=== PATIENT | male | born 1955 | race Caucasian/White ===

== ENCOUNTER 2019-05-02 07:46 | Inpatient (IN) ==
--- NOTE | 2019-05-02 08:01 | PROVIDER DOCUMENTATION ---
HPI-Neurological Disorder - General Chief Complaint: Altered Mental Status Stated Complaint: stroke sxs Source: patient (patient at home not responding to calls family? called in well check found floor in house aphasia weakness in right arm flaccid right leg paresis.he has no cp or headache no seizure disorder smoker on any meds ? no hx cva.) Allergies/Adverse Reactions: Patient Allergies Allergy/AdvReac Type Severity Reaction Status Date / Time No Known Allergies Allergy Verified 05/02/19 07:51 Home Medications: Home Medication List Medication Instructions Recorded Confirmed Last Taken Type Unobtainable [Home Meds 05/02/19 05/02/19 Unknown History Unobtainable] Review of Systems - Adult - REVIEW OF SYSTEMS - ADULT Constitutional: reports: no symptoms reported Eyes: reports: no symptoms reported Ears, Nose, Mouth & Throat: reports: no symptoms reported Cardiovascular: reports: no symptoms reported Respiratory: reports: cough Gastrointestinal: reports: no symptoms reported Genitourinary: reports: no symptoms reported Musculoskeletal: reports: no symptoms reported Integumentary: reports: no symptoms reported Neurological: reports: see HPI, other (aphasia right hemiparesis) Psychiatric: reports: alcohol/drug dependence Endocrine: reports: no symptoms reported Hematologic/Lymphatic: reports: no symptoms reported Allergic/Immunologic: reports: no symptoms reported Past History - Adult - PAST MEDICAL HISTORY-ADULT Review of Records: reports: Nursing Assessment Review, Medications Reviewed, Social history reviewed & non-contributory. Major Childhood Illnesses: reports: denies history Cardiovascular: reports: HTN Respiratory: reports: COPD, other (smoker) Gastrointestinal: reports: denies history Genitourinary: reports: denies history Musculoskeletal: reports: denies history Neurological: reports: denies history Psychiatric: reports: denies history Endocrine/Immune: reports: denies history Progress - PLAN OF CARE/RESULTS Progress/Plan/Lab Results: Vital Signs - 8 hr 05/02/19 07:40 Temperature 98 F Pulse Rate 114 H Respiratory Rate 20 Blood Pressure 164/89 O2 Sat by Pulse Oximetry 98 Orders Category Date Time Status CT HEAD W/O CONTRAST [CT] Stat Exams 05/02/19 07:42 Ordered
--- NOTE | 2019-05-02 08:22 | Diag Imaging Result Doc PS360 ---
EXAM: CHEST-1 VIEW - 05/02/2019 HISTORY: ams TECHNIQUE: One view chest COMPARISON: 02/16/2015 FINDINGS: Heart size is normal. There is some tortuosity of the thoracic aorta. The lungs appear clear. There is no pleural effusion or pneumothorax identified. IMPRESSION: No evidence of acute disease. Electronically signed by Elmer Wilhelm 05/02/2019 8:19 AM
[2019-05-02 08:31] LABS: BASO# 0.03 X1000 (0.0-0.2); BASO% 0.4 % (0.0-0.8); EOS# 0.44 X1000 (0.0-0.7); EOS% 6.2 % (0.0-10.0); HEMATOCRIT 43.2 % (42.0-52.0); HEMOGLOBIN 13.6 g/dL (14.0-18.0); IMM GRAN# 0.01 X1000 (0.0-0.04); IMM GRAN% 0.1 % (0.0-0.5); LYMPH# 1.06 X1000 (1.2-3.4); MCHC 31.5 g/dL (33-37); MCV 101.6 FL (81-99); MONO# 0.74 X1000 (0.11-0.59); MONO% 10.5 % (1.7-9.3); MPV 11.3 FL (7.4-10.4); NEUT# 4.78 X1000 (1.4-6.5); NEUT% 67.8 % (42.2-75.2); PLT 312 X1000 (130-400); RBC 4.25 XMIL (4.7-6.1); WBC 7.06 X1000 (4.8-10.8)
--- NOTE | 2019-05-02 08:33 | Diag Imaging Result Doc PS360 ---
EXAM: CT HEAD W/O CONTRAST - 05/02/2019 HISTORY: ams TECHNIQUE: CT head without contrast COMPARISON: None. FINDINGS: There is approximately 7.5 x 5.5 cm in axial dimensions low-density area at the posterior frontal, anterior temporal, and anterior parietal region on the left. This is compatible with acute infarct. There is associated mild mass effect on the ventricular system. There is no substantial midline shift identified. There is no evidence of intracranial hemorrhage. IMPRESSION: Approximately 7.5 x 5.5 cm acute infarct at left frontotemporoparietal region. Associated mild mass effect on the left lateral ventricle. No evidence of hemorrhage. This report was discussed with Dr. Gerardo on 05/02/2019 at 8:30 AM and was readback. This exam was performed using automated exposure control, adjustment of mA or kV according to patient size, and/or use of iterative reconstruction technique. Electronically signed by Elmer Wilhelm 05/02/2019 8:31 AM
[2019-05-02 08:57] LABS: INR 1.05; PROTIME 14.2 Seconds (11.0-16.0)
[2019-05-02 08:58] LABS: PTT 32.1 Seconds (22.3-41.8)
[2019-05-02 09:05] LABS: ALBUMIN 4.3 g/dL (3.5-5.0); CALCIUM 10.3 mg/dL (8.8-10.2); CREATININE 1.7 mg/dL (0.7-1.2); POTASSIUM 4.4 mmol/L (3.5-5.1); TOTAL BILIRUBIN 0.4 mg/dL (0.20-1.00); TOTAL PROTEIN 7.8 g/dL (6.3-8.3)
[2019-05-02 09:11] LABS: BE -5.7 mmoll (-3.0-3.0); BLOOD TYPE ARTERIAL; HCO3-(ACT) 20.4 mmoll (20.0-26.0); METHB 1.1 % (0.0-1.5); O2(CT) 17.5 mL/dL (15.0-23.0); O2HB 93.3 % (95.0-99.0); PCO2(98.6) 31 mmHg (35-45); PO2(98.6) 72 mmHg (60-100); SAMPLE BLOOD; SAO2 96.5 % (95.0-100.0); THB 13.3 g/dL (11.5-17.4); pH(98.6) 7.38 (7.35-7.45)
[2019-05-02 09:16] LABS: ALLEN TEST YES; MODALITY ROOM AIR
[2019-05-02 09:26] LABS: CK-MB 4.09 ng/mL (0.0-5.0)
[2019-05-02] MEDS ORDERED: NS 1,000 ML IV ONE (09:29)
[2019-05-02] MEDS ORDERED: CALMOSEPTINE OINTMENT TOP ONE (11:32)
--- NOTE | 2019-05-02 13:40 | Extremity Venous Study ---
EXAM: Carotid Ultrasound - 05/02/2019 HISTORY: CVA TECHNIQUE: Carotid flow studies COMPARISON: None. FINDINGS: There is thrombus in the common carotid and carotid bulb on the left with trickle blood flow. There is thrombus in the left internal carotid with no flow signal, compatible with occlusion of the internal carotid. There is atherosclerotic plaquing at the carotid bulb and internal carotid origin on the right. Maximum systolic velocity in the right internal carotid is 76 cm/s, maximum diastolic velocity is 28 cm/s. The right internal to common carotid systolic velocity ratio is 0.73. The flow velocities and ratio are consistent with 0-39% stenosis at the right internal carotid. The left vertebral demonstrates antegrade flow. The right vertebral demonstrates retrograde flow. IMPRESSION: Thrombus with trickle blood flow in the left common carotid and left carotid bulb. Thrombus with complete occlusion of the left internal carotid. Atherosclerotic plaquing at the carotid bulb and internal carotid origin on the right. 0-39% stenosis at right internal carotid. Antegrade flow in left vertebral. Retrograde flow in right vertebral. This report was discussed with Lucila Henriquez on 05/02/2019 at 1:38 PM and was readback. Electronically signed by Elmer Wilhelm 05/02/2019 1:38 PM
--- NOTE | 2019-05-02 14:36 | EKG Report ---
Test Performed on : 05/02/2019 07:57:14 AM Test Reason : ER Blood Pressure : / mmHG Vent. Rate : 119 BPM Atrial Rate : 119 BPM P-R Int : 144 ms QRS Dur : 074 ms QT Int : 306 ms P-R-T Axes : 068 064 248 degrees QTc Int : 430 ms Sinus tachycardia. with frequent premature ventricular complexes. and fusion complexes Possible Left atrial enlargement Septal infarct , age undetermined ST & T wave abnormality, consider inferolateral ischemia Abnormal ECG No previous ECGs available Unconfirmed Result
[2019-05-02] MEDS: NS 1,000 ML IV SCH ×2 (14:56→23:49)
[2019-05-02] MEDS: LOVENOX SUBQ SCH (14:56)
[2019-05-02 15:59] LABS: BILIRUBIN URINE NEGATIVE (NEGATIVE); BLOOD URINE NEGATIVE (NEGATIVE); CLARITY CLEAR (CLEAR); COLOR YELLOW; GLUCOSE URINE NEGATIVE (NEGATIVE); KETONE URINE 1+(Small) mg/dL (NEGATIVE); LEUKOCYTES URINE 2+ (NEGATIVE); NITRITE URINE NEGATIVE (NEGATIVE); PROTEIN URINE NEGATIVE (NEGATIVE); UROBILINOGEN URINE NORMAL
[2019-05-02 16:05] LABS: URINE BACTERIA 2+ /HFP; URINE CAST NONE SEEN /LPF; URINE CRYSTAL NONE SEEN /HPF; URINE EPITHELIAL CELLS >10 /HPF (<10); URINE RBC <10 /HPF (<10); URINE SOURCE CATH; URINE WBC TNTC /HPF (<10); URINE YEAST NONE SEEN /HPF
--- NOTE | 2019-05-02 18:13 | HISTORY AND PHYSICAL ---
PRIMARY CARE PROVIDER: Unknown. CHIEF COMPLAINT: Stroke-like symptoms. HISTORY OF PRESENT ILLNESS: Mr. Altman is a 63-year-old male whose past medical history was obtained from the EMR, hypertension, COPD, smoker, alcohol unknown how much. However, family friend at bedside states that he drinks until he is intoxicated. We have reports that the patient was not responding to any family calls. They called [facility] to do a well check and the patient was found in the floor and was aphasic with right-sided arm weakness and a flaccid right leg. Workup in the ED with a head CT showed approximately a 7 x 5 x 5 x 5 cm acute infarct at the left frontotemporoparietal region associated with a mild mass effect on the left lateral ventricle. No evidence of hemorrhage. The case was discussed with [facility]. They are currently on diversion, so the patient was admitted to [facility] for further evaluation and treatment. We will consult Neurology and continue with a full neurological workup. The patient will be on strict aspiration precautions. He does remain aphasic. He is trying to get his words out. I did ask him if he understood what I was saying. He shook his head yes when I asked him if he knew his name he shook his head yes. I asked him if he just could not get the words out, and he was able to respond by shaking his head yes. He is weak on his right side. He was unable to squeeze my hand at all. He does have some movement in that right lower extremity. However, it is cool to touch. He does have an abrasion to that right knee. We are going to see if we can put a warm blanket over that foot as well as Doppler his pulses to see if we need to do any further investigation of that extremity. It does not appear to be anything acute. Again, we will continue to follow that up. PAST MEDICAL HISTORY: Per EMR, hypertension, COPD, alcohol, tobacco. PAST SURGICAL HISTORY: Unknown. FAMILY HISTORY: Unknown. SOCIAL HISTORY: Per his friend at the bedside he has a son who is in [place] and will be here in the next 1 to 2 days. Tobacco. Alcohol. REVIEW OF SYSTEMS: Hard to obtain secondary to patient's condition except for those mentioned in HPI. PHYSICAL EXAMINATION: VITAL SIGNS: Temperature is 97.9 degrees, heart rate 98, respirations 14, blood pressure 149/71. O2 is 100% on 2 L. GENERAL: Mr. Altman is an unfortunate 63-year-old gentleman who is lying in the bed in no acute distress. HEENT: Atraumatic, normocephalic. PERRL. On his left eye he does per his friend have some busted blood vessels that makes it hard for him to see out of. Normocephalic. NECK: Supple. Trachea midline. CARDIOVASCULAR: S1, S2 appreciated. No murmurs, gallops, rubs noted. RESPIRATORY: Lung sounds clear bilaterally. GASTROINTESTINAL: Abdomen is soft, nontender, nondistended. Positive bowel sounds 4 quadrants. LOWER EXTREMITIES: Patient does have some bruising with a scab noted to his right knee. His left lower extremity was warm, dry, and intact. Pedal pulses palpable. His right lower extremity just his foot was cool to the touch, I possibly feel a faint pedal pulse. Again, we are going to place a warm blanket on it and do a Doppler ultrasound on it. NEUROLOGIC: The patient is lying in the bed, awake. He does try to follow commands. He does try to speak. However, the most he was able to get out was okay. He does shake his head yes and no to questions. Outer Diameter Technician strength on the right was 0/0. His lower extremity, he was able to move it, it was about a 4/5. Left lower extremity was 5/5. He does have an asymmetrical smile. With a pronator drift, he was unable to lift his right arm. He has no shoulder shrug on the right. There is a slight deviation in his tongue. DIAGNOSTIC DATA: Head CT, approximately 7.5 x 5 x 5 cm acute infarct at the left frontotemporoparietal region associated with mild mass effect on the left lateral ventricle. No evidence of hemorrhage. Chest x-ray, no evidence of acute disease. LABORATORY DATA: White count 7, hemoglobin and hematocrit 13 and 43, platelet count 312,000. Sodium 154, potassium 4.4, BUN 76, creatinine 1.7, blood glucose is 123. CK was 430. Plasma lactate 1.6. Alcohol level was negative. ASSESSMENT AND PLAN: 1. Acute cerebrovascular accident to the left frontotemporoparietal region. The patient is not a candidate for tPA secondary to the unknown how long he was down. ED did speak with [facility]. They were on diversion. Decision was made to admit the patient to [facility]. We will consult Dr. Youngblood and continue with a full neurology workup. We will place him on aspiration precautions. Physical therapy, speech therapy, OT, NPO, frequent neurologic checks. Aspirin NE and go ahead and get brain MRI, MRA, carotids and echocardiogram. 2. Dehydration. We will continue with IV hydration. 3. Acute renal failure. We will continue with IV hydration. 4. Mild rhabdomyolysis with an elevated CK of 430. We will continue to trend his CK and continue with aggressive IV hydration. 5. Chronic obstructive pulmonary disease. 6. Hypertension. We will allow for permissive hypertension at least for 20 to 24 hours, 220/120. 7. Tobacco abuse. 8. Alcohol abuse. 9. Further recommendation to follow physician evaluation, laboratory data and diagnostic data and awaiting son's arrival from [place]. Dictated by WERO Jaime for Ramírez Bright MD cc: Ramírez Bright MD
[2019-05-02] MEDS: LIPITOR PO SCH (20:00)
--- NOTE | 2019-05-02 20:48 | CONSULTATION ---
DATE OF CONSULTATION: 05/02/2019 HISTORY OF PRESENT ILLNESS: Mr. Altman is 63 years old and there is imaging evidence of recent left hemisphere infarction. He has dysphasia and is not able to provide history himself. He lives alone and we do not have a detailed recent history. By report, a neighbor became concerned and phoned police who found the patient on the floor at home, unable to communicate with language. He was brought to the hospital, evaluated, and admitted. By report, his neurologic deficit has been stable over these several hours here. I spoke with a friend in the hallway, who last saw Mr. Altman up and about a few weeks ago. I spoke with Mr. Altman's son by phone who reports there is no prior history of stroke, serious head injury, or other neurologic event. There is history of left carotid endarterectomy several years ago. Son believes there was not associated stroke or focal neurologic incident then, but that the stenosis was detected on routine exam and managed with surgery. There may be history of ischemic heart disease and coronary stenting, but that is uncertain. There is history that he was treated for hypertension over an uncertain period of time, and that he was advised that he did not need to continue medicine for blood pressure control in recent years. There is reported history of significant ethanol use and abuse. He smokes cigarettes. I do not know any other past medical history. Workup here includes noncontrast CT done approximately 4.5 hours ago, showing evidence of large left frontotemporal lucency with some surrounding edema, and features consistent with acute or subacute infarction. There is some atrophy and I do not see anything else otherwise remarkable. Labs showed sodium 154, BUN 76, which is well above his baseline, glucose 123, which appears to be within his baseline, calcium 10.3 with prior calcium levels all normal, CK 430. Last A1c reported on this computer was in 2017 at 6.2%. He has been afebrile. Systolic blood pressures were initially 160s, recently 140s. Initial heart rate was 110s, recently 80s to 90s. Carotid ultrasound was just completed. There is evidence of complete left internal carotid occlusion. Echocardiogram is ordered. There is brain MRI and MRA on order. Lipid profile is ordered. I do not know home medications. Son believes patient likely took any medicines prescribed as directed. He does not know about daily aspirin or other antiplatelet management. He is not certain patient was taking any medications. PHYSICAL EXAMINATION: On exam, Mr. Altman is awake, alert, attentive. He had appropriate gestures. He seemed to attempt to communicate with language, but was unable to do so. When I asked him to hold up fingers, he initially did nothing, but when I repeated the command several times, he held up his left hand and turned it. He protruded his tongue once after several commands, and tongue protrudes toward the right. He closed his eyes inconsistently to command. He did not speak words that I could understand. When I asked him to name my wrist watch, he mumbled and shook his head negatively. When I asked him if it was "airplane" or "butterfly", he shook his head negatively. When I asked him if it was a "wrist watch", he nodded affirmatively. He seemed attentive to visual field testing, but I still was not able to determine that he had vision in the right field. He did blink with visual threat on the left. When I held an object in his left field, he fixed gaze and followed it. He did not follow objects in the right field as well. Facial motility is diminished on the right in an upper motor neuron pattern. Right arm is flaccid. He used his left arm purposefully and demonstrated normal power and hot box spotter there. He did well with left [id number]. I did not test his gait. He nodded with pinprick testing over left and right limbs, but findings were inconsistent with limited attempted sensory exam. IMPRESSION: Imaging evidence of large recent left middle cerebral territory infarction. Clinically, there is right hemiplegia and global dysphasia, possibly expressive more than receptive component. I am not certain about vision loss. I am not certain about his recent medical history or risk factors for cerebrovascular ischemic problems. If there is complete left carotid occlusion, we will be left with options for conservative management, including aggressive hydration, maintaining adequate blood pressure, treating blood sugar and lipids aggressively. I encouraged him to quit smoking cigarettes, but not certain he is comprehending language at this time. If the MRA ordered raises question of left internal carotid flow, we might consider CT angiogram, and if there is evidence of left carotid flow, he might be a candidate for more aggressive management. Thanks for asking Neurology to see Mr. Altman. cc: Marisela Youngblood III, MD [facility]
--- NOTE | 2019-05-02 21:02 | HISTORY AND PHYSICAL ---
ADDENDUM: The patient was apparently found down at home, confused, aphasic. Ambulance was called and brought him to the hospital. Workup thus far is negative lab-veras. Carotid and echocardiogram are currently pending. He appears to certainly have had a stroke. We are going to admit him to the hospital and treat. cc: Ramírez Bright MD
[2019-05-03 07:01] LABS: BASO# 0.02 X1000 (0.0-0.2); BASO% 0.4 % (0.0-0.8); EOS% 7.7 % (0.0-10.0); HEMATOCRIT 41.5 % (42.0-52.0); HEMOGLOBIN 12.6 g/dL (14.0-18.0); IMM GRAN# 0.01 X1000 (0.0-0.04); IMM GRAN% 0.2 % (0.0-0.5); LYMPH# 0.83 X1000 (1.2-3.4); MCH 31.7 PG (27-31); MCHC 30.4 g/dL (33-37); MCV 104.3 FL (81-99); MONO# 0.44 X1000 (0.11-0.59); MONO% 8.5 % (1.7-9.3); MPV 11.4 FL (7.4-10.4); NEUT% 67.2 % (42.2-75.2); PLT 254 X1000 (130-400); RBC 3.98 XMIL (4.7-6.1); RDW 14.2 % (11.5-14.5)
[2019-05-03] MEDS: NS 1,000 ML IV SCH (07:09)
[2019-05-03 07:22] LABS: HEMOGLOBIN A1C 5.2 % (4.8-6.0)
[2019-05-03 07:37] LABS: ALBUMIN 3.4 g/dL (3.5-5.0); CALCIUM 9.2 mg/dL (8.8-10.2); CREATININE 1.3 mg/dL (0.7-1.2); TOTAL BILIRUBIN 0.3 mg/dL (0.20-1.00); TOTAL PROTEIN 6.4 g/dL (6.3-8.3)
--- NOTE | 2019-05-03 13:00 | PROGRESS NOTE ---
DATE: 05/03/2019 SUBJECTIVE: The patient denies having any acute complaints this morning. OBJECTIVE: Vital Signs: Temperature 97.3 degrees, pulse 78 per minute, respiratory rate 18 per minute, blood pressure 137/74, pulse oximetry 100% on room air. General: Patient is awake and alert. He does not appear to be in any acute distress. Cardiovascular: First and second heart sounds are audible without any murmurs or gallops. Respiratory: Bilateral lung air entry is good without any rales or rhonchi. Gastrointestinal: The patient is morbidly obese. Abdomen is soft and nontender. Normal bowel sounds are present. Neurologic: Right upper and lower extremity weakness is present. DIAGNOSTIC DATA: CBC is nondiagnostic. Chemistry showed BUN of 63 and creatinine 1.3. The sodium levels are found to be 158. Rest of the chemistry is nondiagnostic. Cholesterol levels were found to be 182 with triglycerides 322. HDL levels were 39, and calculated LDL levels were 101. IMPRESSION: 1. Acute cerebrovascular accident with right-sided hemiparesis. 2. Acute kidney injury. 3. Hypernatremia. 4. Hypertension. 5. Tobacco abuse. PLAN: We are going to continue with aspirin along with atorvastatin. I am going to change his IV fluid to half-normal saline because of hypernatremia, but we will continue with hydration. Physical Therapy has already been ordered for him. I believe he will need to be transferred to rehab sometime next week. cc: Gina Morrison MD
[2019-05-03] MEDS: ASPIRIN PR SCH (13:27)
[2019-05-03] MEDS: 1/2 NS 1,000 ML IV SCH ×2 (13:28→19:50)
[2019-05-03] MEDS: LOVENOX SUBQ SCH (15:25)
[2019-05-03] MEDS: LIPITOR PO SCH (20:02)
[2019-05-04] MEDS: 1/2 NS 1,000 ML IV SCH (04:21)
[2019-05-04 07:17] LABS: BASO# 0.03 X1000 (0.0-0.2); BASO% 0.6 % (0.0-0.8); EOS# 0.54 X1000 (0.0-0.7); EOS% 11.3 % (0.0-10.0); HEMATOCRIT 36.2 % (42.0-52.0); HEMOGLOBIN 11.2 g/dL (14.0-18.0); IMM GRAN# 0.01 X1000 (0.0-0.04); IMM GRAN% 0.2 % (0.0-0.5); LYMPH# 1.03 X1000 (1.2-3.4); LYMPH% 21.6 % (20.5-51.1); MCH 31.6 PG (27-31); MCHC 30.9 g/dL (33-37); MCV 102.3 FL (81-99); MONO# 0.48 X1000 (0.11-0.59); MONO% 10.1 % (1.7-9.3); MPV 11.2 FL (7.4-10.4); NEUT# 2.67 X1000 (1.4-6.5); NEUT% 56.2 % (42.2-75.2); PLT 243 X1000 (130-400); RBC 3.54 XMIL (4.7-6.1); RDW 13.7 % (11.5-14.5); WBC 4.76 X1000 (4.8-10.8)
[2019-05-04 07:35] LABS: AGAP 9; BUN 38 mg/dL (8-22); CALCIUM 8.3 mg/dL (8.8-10.2); CHLORIDE 119 mmol/L (98-107); COSMO 305; CREATININE 1.1 mg/dL (0.7-1.2); ESTIMATED GFR > 60; GLUCOSE 90 mg/dL (70-104); POTASSIUM 3.8 mmol/L (3.5-5.1); SODIUM 149 mmol/L (136-145); TCO2 21 mmol/L (25-35)
[2019-05-04] MEDS: ASPIRIN PR SCH (08:45)
--- NOTE | 2019-05-04 10:29 | PROGRESS NOTE ---
DATE: 05/04/2019 SUBJECTIVE: The patient denies having any acute complaints. He is lying in bed and continues to have right upper and lower extremity weakness. OBJECTIVE: Vital signs: Temperature is 97.9 degrees, pulse 73 per minute, respiratory rate 18 per minute, blood pressure 126/70, pulse oximetry 100% on 2 L of oxygen by nasal cannula. General: The patient is awake and alert. He does not appear to be in any acute distress. Cardiovascular: First and second heart sounds are audible without any murmurs or gallops. Respiratory: Bilateral lung air entry is good without any rales or rhonchi. Gastrointestinal: Abdomen is soft and nontender. Normal bowel sounds are present. Neurologic: Right upper and lower extremity motor weakness is present. DIAGNOSTIC DATA: CBC shows hemoglobin of 11.2, hematocrit 36.2. The rest of the CBC is nondiagnostic. Basic metabolic panel shows sodium level of 149, and that is improved from 158 yesterday. His BUN has also improved from 63 to 38 this morning, and creatinine has improved as well from 1.3 yesterday to 1.1 today. IMPRESSION: 1. Acute cerebrovascular accident with right-sided hemiparesis. 2. Acute kidney injury that is getting better. 3. Hypernatremia that has also partially improved. 4. Hypertension. 5. Tobacco abuse. PLAN: We are going to continue with aspirin along with atorvastatin and continue his IV fluid half normal saline to hydrate him and to address his hypernatremia. Physical Therapy is already onboard, and I believe he will need to be transferred to rehab sometime this week. cc: Gina Morrison MD
[2019-05-04] MEDS: LOVENOX SUBQ SCH (18:04)
[2019-05-04] MEDS: LIPITOR PO SCH (21:06)
[2019-05-05 06:43] LABS: BASO# 0.03 X1000 (0.0-0.2); BASO% 0.6 % (0.0-0.8); EOS# 0.52 X1000 (0.0-0.7); HEMATOCRIT 38.3 % (42.0-52.0); HEMOGLOBIN 11.7 g/dL (14.0-18.0); IMM GRAN# 0.02 X1000 (0.0-0.04); IMM GRAN% 0.4 % (0.0-0.5); LYMPH# 1.15 X1000 (1.2-3.4); LYMPH% 22.2 % (20.5-51.1); MCHC 30.5 g/dL (33-37); MCV 101.3 FL (81-99); MONO# 0.51 X1000 (0.11-0.59); MONO% 9.8 % (1.7-9.3); MPV 11.3 FL (7.4-10.4); NEUT# 2.96 X1000 (1.4-6.5); PLT 266 X1000 (130-400); RBC 3.78 XMIL (4.7-6.1); RDW 13.4 % (11.5-14.5); WBC 5.19 X1000 (4.8-10.8)
[2019-05-05 06:56] LABS: AGAP 7; CHLORIDE 118 mmol/L (98-107); GLUCOSE 105 mg/dL (70-104); POTASSIUM 3.7 mmol/L (3.5-5.1); SODIUM 148 mmol/L (136-145); TCO2 23 mmol/L (25-35)
[2019-05-05 06:57] LABS: BUN 23 mg/dL (8-22); CALCIUM 8.4 mg/dL (8.8-10.2); COSMO 298; CREATININE 1.1 mg/dL (0.7-1.2); ESTIMATED GFR > 60
--- NOTE | 2019-05-05 10:48 | Diag Imaging Result Doc PS360 ---
EXAM: MRI BRAIN W/WO CONTRAST HISTORY: stroke TECHNIQUE: Routine protocol with and without contrast. COMPARISON: CT brain 05/02/2019 FINDINGS: There is a large area of restricted diffusion consistent with acute infarct in the left middle cerebral artery territory. There is diffuse cortical edema. Heterogeneous enhancement is noted. There is absence of the left internal carotid flow void. There is mild restricted diffusion within the peripheral left mid brain. There is mild mass effect. No midline shift.. There is marked diffuse cerebral atrophy. Mild ex vacuo hydrocephalus. There are multiple T2 hyperintensities within the deep white matter microvascular disease. IMPRESSION: 1.Extensive left MCA infarct with mild mass effect but no midline shift. 2.Occlusion or near occlusion of the left internal carotid artery. 3.Atrophy and microvascular disease. Electronically signed by Carol Cuevas 05/05/2019 10:45 AM
--- NOTE | 2019-05-05 11:00 | Diag Imaging Result Doc PS360 ---
EXAM: MRA BRAIN W/O CONTRAST HISTORY: stroke TECHNIQUE: 3-D [id number] images. COMPARISON: None. FINDINGS: There is absence of flow within the left intracranial portion of the internal carotid artery. There is markedly decreased flow within the left middle cerebral artery and branches. The anterior cerebral arteries, posterior cerebral arteries, basilar artery, and right middle cerebral arteries are patent. There is a origin of the right posterior cerebral artery. Intracranial right internal carotid artery is patent. The left basal ganglia is hyperintense with mild mass effect upon the left lateral ventricle. No midline shift. There is diffuse cerebral atrophy. IMPRESSION: 1.Occlusion of the intracranial left internal carotid artery. 2.Markedly decreased flow within the left middle cerebral artery and branches. 3.Hyperintense left basal ganglia consistent with edema. Cannot exclude hemorrhagic transformation within the basal ganglia. Consider follow-up CT brain. 4. Marked left frontoparietal temporal cortical edema consistent with infarction. This report was discussed with Stephanie on 05/05/2019 at 10:30 a.M. with read back verification. Electronically signed by Carol Cuevas 05/05/2019 10:58 AM
[2019-05-05] MEDS: ASPIRIN PR SCH (11:31)
[2019-05-05] MEDS: PLAVIX PO SCH (11:34)
[2019-05-05] MEDS: TRICOR PO SCH (11:34)
[2019-05-05] MEDS: NORVASC PO SCH (11:34)
--- NOTE | 2019-05-05 14:20 | ECHO REPORT ---
ORDER DATE: 05/05/2019 INDICATION: CVA. FINDINGS: 1. The right atrium appears normal in size at 2.9 cm. 2. Mild tricuspid regurgitation. RV systolic pressure unable to be assessed due to a poor Doppler jet. 3. Normal RV size and systolic function. 4. No significant pulmonic insufficiency. 5. Normal left atrial size at 3.5 cm. 6. No mitral valve prolapse. Mild mitral regurgitation. No clear evidence of mitral stenosis. 7. Normal LV size, end-diastolic dimension of 5.1 cm. Mild left ventricular hypertrophy with a posterior and interventricular septal wall thickness of 1.2 cm each. Normal LV systolic function. The estimated ejection fraction appears to be on the order of 60-65%. 8. Aortic valve appears to open well. No evidence of stenosis. Mild insufficiency. 9. Aorta appears somewhat dilated with a dimension of 3.9 cm. This was noted back in 2014. 10. No pericardial effusion seen. cc: Butch Flores MD
[2019-05-05] MEDS: 1/2 NS 1,000 ML IV SCH ×2 (21:00→21:48)
[2019-05-05] MEDS: LIPITOR PO SCH (21:48)
[2019-05-06] MEDS: 1/2 NS 1,000 ML IV SCH (06:25)
--- NOTE | 2019-05-06 07:58 | PROGRESS NOTE ---
DATE: 05/05/2019 SUBJECTIVE: Patient has no complaints. Continues to have right upper and lower extremity weakness. OBJECTIVE: Temperature 97.6 degrees, pulse 74, respiratory rate 18, BP 138/75.General: Patient is awake, alert. He is currently in no distress. Lungs: Clear. Abdomen: Soft. Extremities: He has significant right upper and lower extremity weakness. He does seem to have some dysarthric speech as well. ASSESSMENT: 1. Acute cerebrovascular accident with right-sided hemiparesis. 2. Acute kidney injury resolved. 3. Hyponatremia stable at 149. 4. Hypertension. 5. Chronic tobacco abuse. PLAN: Continue patient in the hospital. Continue physical therapy. We will consult rehab for evaluation. cc: Ramírez Bright MD
[2019-05-06] MEDS: NORVASC PO SCH (10:18)
[2019-05-06] MEDS: ASPIRIN PR SCH (10:18)
[2019-05-06] MEDS: TRICOR PO SCH (10:18)
[2019-05-06] MEDS: PLAVIX PO SCH (10:18)
[2019-05-06 11:39] VITALS: BP 133/63
--- NOTE | 2019-05-06 11:59 | DISCHARGE SUMMARY ---
ADMISSION DATE: 05/02/2019 DISCHARGE DATE: 05/06/2019 PRIMARY CARE PHYSICIAN: None. ADMISSION DIAGNOSES: 1. Acute cerebrovascular accident to the left frontotemporal parietal region. 2. Dehydration. 3. Acute renal failure. 4. Mild rhabdomyolysis with elevated CK of 430. 5. Chronic obstructive pulmonary disease. 6. Hypertension. 7. Tobacco abuse. 8. Alcohol abuse. DISCHARGE DIAGNOSES: 1. Acute cerebrovascular accident with right-sided hemiparesis. 2. Acute kidney injury resolved. 3. Hypernatremia improved. 4. Hypertension. 5. Chronic tobacco abuse. SUMMARY OF FINDINGS: This is a 63-year-old male who presented to the ER. She had a family friend at the bedside when he first arrived that said that he drank until he was intoxicated. They reported that he was not responding to any of the family calls so the family called Baljit ROQUE to do a well check, and the patient was found on the floor aphasic with right-sided arm weakness and a flaccid right leg. The CT showed a 7 x 5 x 5 x 5 cm acute infarct at the left frontotemporal parietal region associated with mild mass-effect of the left lateral ventricle. We did discuss this case with [facility] who was on diversion so he was admitted here. He remains aphasic. He was able to shake his head yes and no to certain questions, but was unable to get his words out. We did a carotid Doppler study that showed an impression of a thrombus with trickle blood flow in the left common carotid and left carotid bulb. Thrombus with complete occlusion in the left internal carotid. Atherosclerotic plaquing at the carotid bulb and internal carotid origin on the right at 0 to 39 percent stenosis at the right internal carotid. Antegrade flow in the left vertebral, and retrograde flow in the right vertebral. We did do a neuro consultation, and a brain MRI was ordered that showed occlusion of the intracranial left internal carotid artery, markedly decreased flow within the left middle cerebral artery and branches, hyperintense left basal ganglia consistent with edema, and could not exclude hemorrhagic transformation within the basal ganglia with a follow-up CT to be considered. Marked left frontal parietal temporal cortical edema consistent with infarction. Brain MRI showed extensive left MCA infarct with mild mass effect but no midline shift. 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 We did an echocardiogram that showed left ventricular systolic function was normal with an ejection fraction of 60 to 65 percent. We did a speech therapy evaluation, and was placed on a pureed diet. This has improved in his swallowing, and patient wants to try to eat regular food, but he will need another speech evaluation when he arrived to rehab to evaluate for changing his diet, but at this time it is felt that he can safely be discharged to rehab today. He will continue his home medications of Norvasc 5 mg p.o. daily, aspirin 300 mg suppository OH daily, atorvastatin 80 mg p.o. at bedtime, Plavix 75 mg p.o. daily, fenofibric acid 135 mg p.o. daily. FOLLOW-UP: He will need to obtain a primary care physician once he has completed his rehab stay for followup and his rehab. We will set all that up for him at the time of discharge. TIME SPENT: This is a 35 minute discharge. Dictated by WERO Mueller for Patrick Woody MD cc: WERO Mueller MD
--- NOTE | 2019-05-07 01:44 | DISCHARGE SUMMARY ---
ADMISSION DATE: 05/02/2019 DISCHARGE DATE: 05/06/2019 HISTORY AND HOSPITAL COURSE: He is doing okay. To me, he is awake and he did try to speak, son made it sound like he has not been talking, I know he has had trouble with speech but, in any case, he is stable. Vital signs are stable. Plan will be to discharge him to [facility] today. I did discuss the case with Dr. Youngblood previously. Apparently, it was 36 hours before he came, he was evaluated, and he had a large infarct that was already seen by [facility], it was discussed and they were on diversion, and in any case he was not admitted there. He had a large stroke and it he is slowly recovering from that. We had a long discussion with his son. Plan will be to discharge to [facility] for further treatment. I will try to get a head and neck CT prior to discharge, and we will continue to follow. He has been on Lipitor. He does have fairly significant hypertriglyceridemia. I would recommend repeating his lipids and then deciding about triglyceride treatment subsequently. This is a [id number] encounter with Miranda Bowen. TIME SPENT: A 35 minute discharge. cc: Patrick Woody MD
== END 2019-05-06 13:21 | DRG 65 ==
LOC: P.ED 07:46 → P.MEDSURG 09:45 → SUATTDRO 09:45
PROVIDERS: ATTEND Internal Medicine